=== PATIENT | female | born 1990 | race Caucasian/White ===

== ENCOUNTER 2023-07-03 09:13 | Emergency (ER) | payer OTHER, SELFPAY ==
[2023-07-03 09:16] VITALS: BP 145/95
--- NOTE | 2023-07-03 09:27 | ED.GENMED ---
History of Present Illness
General
Chief Complaint: Abdominal Pain
Source: patient
Exam Limitations: none
Time Seen by Provider: 07/03/23 09:23
Nursing documentation reviewed up to this point in time: agreed with
Travel History
Have you had any contact with someone who has COVID-19?: No
Do you have any symptoms of coronavirus? Fever > 100 degrees, chills, cough, shortness of breath, sore throat, loss of taste or smell, muscle aches, or headache?: No
History of Present Illness
History of Present Illness:
33-year-old female presents stating for the past 2 days she has had 3-4 episodes of explosive diarrhea, general abdominal pain for past 3 weeks. Seen at 06/26 w neg U/A, neg Covid, neg Flu.
States her abdominal pain has been there for approximately 3 weeks, generalized but in the past 2 nights it has migrated over to the left and up under her left ribs, both flank areas, up into her left shoulder and into her left ear. States it feels
like 'a big gas bubble.' Pain is worse with deep breaths laying down on back or left side. Improves sitting up and leaning forward.
States has had low grade fevers.
Took Valium 10 mg and pain went from 10/10 to now 4/10
Medications include:
Valium 10 mg 3 times daily as needed
Adderall 20 mg 3 times daily which she takes as needed
Spironolactone 100 mg daily which she has not taken for 2 days due to feeling ill
Trileptal
control pills
Past History
Past History
ED Past Medical History: Psychiatric (PTSD, anxiety/depression)
ED Past Surgical History: Appendectomy and
Social History
Tobacco: Non-smoker
Alcohol: Occasional
Personal: Single
Living: with family
Review of Systems
Review of Systems
Allergies reviewed?: Yes
All Other Systems: ROS reviewed and negative except as documented in HPI and ROS
Constitutional: Reports fever (low grade)
Respiratory: Denies trouble breathing
Cardiac: Reports chest pain; Denies diaphoresis or palpitations
ABD/GI: Reports abdominal pain and diarrhea; Denies nausea, vomiting, bloody stools or black stools
: Reports flank pain (bilateral); Denies dysuria, frequency, difficulty voiding or urgency
Musculoskeletal: Reports no symptoms
Skin: Reports no symptoms
Neurological: Reports no symptoms
Phy Exam
Physical Exam
Physical Exam:
GENERAL: No acute distress. A&Ox3.
CONSTITUTIONAL: Afebrile.
EYES: Clear, conjunctivae normal
Neck: Supple
ENMT: moist mucus membranes, Pharynx nl, TMs normal
RESPIRATORY: Regular respirations, nonlabored, lungs clear.
CARDIOVASCULAR: Regular rate and rhythm, no murmurs, no rubs.
GI: Soft, mildly tender LUQ, normal BS. Flanks nontender to percussion.
MUSCULOSKELETAL: No spinal bony tenderness, full ROM of neck. Moves with ease. Well perfused. No edema
SKIN: Warm, dry, pink
PSYCH: Normal mood and affect. Well kept, interactive and appropriate
NEUROLOGIC: Awake, alert and oriented. No focal neurological deficits
Course
Orders/Labs/Results
Orders:
Orders
07/03/23 09:15
Electrocardiogram (*1) Urgent
Reason for Study: Chest Pain
EKG- Treatment ONCE
07/03/23 09:40
Test Result ONCE
07/03/23 09:41
CMP [Comprehensive Metabolic Panel] Urgent
Complete Blood Count/With Diff Urgent
D-Dimer Urgent
HCG, Serum Qualitative Screen Urgent
Lipase Urgent
Troponin I Urgent
07/03/23 09:48
0.9% Sodium Chloride 1000 ml [Nss] 1,000 ml IV BOLUS
07/03/23 10:53
CT Abd/Pel (IV only)-DH only Urgent
Comment:
Reason For Exam: bilateral flank pain,
07/03/23 11:10
Ketorolac [Toradol] 15 mg IV NOW STA
07/03/23 11:16
Urinalysis Reflex To Culture Urgent
Date Specimen was Collected: 07/03/23
Time Specimen was Collected: 10:59
07/03/23 12:34
CR Chest - 2 Views Urgent
Comment:
Reason For Exam: chest pain mainly left side chest, shoulder
07/03/23 13:38
Mag Hydrox/Al Hydrox/Simeth [Maalox] 30 ml PO NOW STA
Viscous Lidocaine 2% [Xylocaine Viscous Cup] 15 ml PO NOW STA
Abnormal Lab Results
07/03/23
09:41
Absolute Lymphs (auto) 1.1 L 10^3/uL
(1.2-3.4)
Neutrophils % 75.9 H %
(42.2-75.2)
Lymphocytes % 13.0 L %
(20.5-51.1)
Glucose 107 H mg/dl
(70-99)
07/03/23 09:41
07/03/23 09:41
Vital Signs
Initial and Last Documented VS:
Initial Vital Signs
Temp Pulse Resp BP Pulse Ox
98.1 F 102 18 145/95 100
07/03/23 09:16 07/03/23 09:16 07/03/23 09:16 07/03/23 09:16 07/03/23 09:16
Last Documented Vital Signs
Temp Pulse Resp BP Pulse Ox
98.1 F 82 16 122/74 97
07/03/23 09:16 07/03/23 14:46 07/03/23 14:46 07/03/23 14:46 07/03/23 14:46
Sheriff Deputy consulted with Physician
Sheriff Deputy consulted with physician?: Yes
Name of Physician Consulted: Damion
MDM/Problems Addressed
Differential Diagnosis Includes:
kidney stone, diverticulitis, ovarian cyst.
Costochondritis, GERD, Pneumothorax, PE, pericardial effusion, pericarditis
MDM/Problems Addressed:
33-year-old female presents stating for the past 2 days she has had 3-4 episodes of explosive diarrhea, general abdominal pain for past 3 weeks. Seen at [facility]26 w neg U/A, neg Covid, neg Flu.
States her abdominal pain has been there for approximately 3 weeks, generalized but in the past 2 nights it has migrated over to the left and up under her left ribs, both flank areas, up into her left shoulder and into her left ear. States it feels
like 'a big gas bubble.' Pain is worse with deep breaths laying down on back or left side. Improves sitting up and leaning forward.
States has had low grade fevers.
Took Valium 10 mg and pain went from 10/10 to now 4/10
EKG NSR
11:02 AM
CBC normal
CMP normal
hCG negative
Troponin normal
12:[address] scan abdomen pelvis, radiology report read:
IMPRESSION:
1. There is a 2.8 cm cyst in the right adnexa, likely ovarian. Pt informed
2. Left kidney is atrophic but does perfuse. This is likely chronic. pt informed. She was not aware
No sign of pericarditis, percardial effusion
.
Nothing to explain symptoms, no worrisome findings
She is stable for DC. States some pain relief after GI cocktail
Plan: PPI, , f/u with PCP/GI as scheduled.
Patient ambulated out with normal gait upon discharge
*Critical Care Note
Total Time (30-74mins, 75-104mins- exclusive of procedures): Not Applicable
ED Attending Note
-
Portions of this chart may have been created with voice recognition software.� Occasional wrong word or��sound alike� substitutions may have occurred due to the inherent limitations of voice recognition software.
Discharge Plan
Departure
Patient Disposition: Home (Routine Discharge)
Date of Disposition: 07/03/23
Time of Disposition: 13:44
Patient with high blood pressure during this ER visit?: No
Condition: Fair
Discharge Problem:
Abdominal pain, Back pain
Instructions: Back Pain, Abdominal Pain
Prescriptions:
New
pantoprazole [Protonix] 40 mg tablet,delayed release (DR/EC)
40 mg PO DAILY Qty: 30 0RF
No Action
dextroamphetamine-amphetamine [Adderall] 20 MG tablet
20 mg PO TID
diazepam [Valium] 10 MG tablet
10 mg PO TID
Lisinopril
1 tab PO PRN PRN (Reason: hypertension)
Patient Comments:
pt does not know mg and does not take it often
Referrals:
Your, GI doctor at [facility] [Other] - Keep scheduled appt
Tenthoff,Suzie Rhodes MD [Family Provider] -
Activity Restrictions/Additional Instructions:
As we discussed, nothing in your workup here today to explain your symptoms. Nothing worrisome in your workup today.
Keep your GI appointment, continue your current medications as ordered
I sent a prescription to your pharmacy for pantoprazole
Interventions
Interventions:
*Risk Screen - Suicide Last Done: 07/03/23 09:21
*General Assessment Last Done: 07/03/23 09:21
*Neglect/Abuse Screening Last Done: 07/03/23 09:21
ED- Fall Risk Assessment Last Done: 07/03/23 09:45
*ED COVID-19 Vaccine History Last Done: 07/03/23 09:36
*Nursing Disposition Last Done: 07/03/23 14:46
NM-Dxvrzn-Fxatpscsrc Assessment Last Done: 07/03/23 09:45
Discharge Date and Time
Discharge Date/Time: 07/03/23 14:25
Print Language: NORWEGIAN
[2023-07-03 09:36] VITALS: BMI 31.4
[2023-07-03 09:38] VITALS: BP 121/97
[2023-07-03] MEDS: NSS 1000 IV (09:50)
[2023-07-03 10:00] VITALS: BP 119/72
[2023-07-03 10:04] LABS: % Basophils 0.5 % (0-2); % Eosinophils 2.8 % (0-6); % Immature Granulocytes 0.2 % (0-0.5); % Monocytes 7.6 % (1.7-9.3); % Neutrophils 75.9 % (42.2-75.2); Absolute Eosinophils 0.2 10^3/uL (0-0.7); Absolute Lymphocytes 1.1 10^3/uL (1.2-3.4); Absolute Monocytes 0.6 10^3/uL (0.1-0.6); Absolute Neutrophils 6.4 10^3/uL (1.4-6.5); Hemoglobin 14.9 g/dL (12.0-16.0); Mean Corp Hgb Conc. 34.7 g/dL (33.0-37.0); Mean Corpuscular Volume 89.6 fL (81.0-99.0); Mean Platelet Volume 9.2 fL (7.4-10.4); Nucleated Red Blood Cells % 0 %; Platelet Count 199 10^3/uL (130-400); Red Cell Dist. Width 13.1 % (11.5-14.5); White Blood Cell Count 8.4 10^3/uL (4.8-10.8)
[2023-07-03 10:12] LABS: HCG, Serum Qualitative Screen Negative
[2023-07-03 10:19] LABS: ALT (SGPT) 18 U/L (0-35); AST (SGOT) 21 U/L (14-36); Albumin 4.5 g/dl (3.5-5.0); Alkaline Phosphatase 65 U/L (38-126); Blood Urea Nitrogen 12 mg/dl (7-17); Calcium 9.5 mg/dl (8.4-10.2); Carbon Dioxide 24 mmol/L (22-30); Chloride 105 mmol/L (98-107); Estimated Creatinine Clearance 112 ml/min; Glucose 107 mg/dl (70-99); Lipase 39 U/L (23-300); Potassium 4.3 mmol/L (3.5-5.1); Sodium 136 mmol/L (135-145); Total Bilirubin 0.6 mg/dl (0.2-1.3); Total Protein 7.5 g/dl (6.3-8.2); eGFR > 60.00
[2023-07-03 10:25] LABS: Troponin I < 0.012 ng/ml
[2023-07-03 10:46] LABS: D-Dimer 0.44 ug/mlFEU (0.00-0.50)
[2023-07-03] MEDS: TORADOL 15 MG IV (11:13)
[2023-07-03 11:19] VITALS: BP 118/74
[2023-07-03 11:36] LABS: Urine Albumin Negative (Neg - Trace); Urine Bilirubin Negative (Negative); Urine Character Clear (Clear); Urine Color Yellow; Urine Glucose Negative (Negative); Urine Ketone Negative (Negative); Urine Leukocyte Negative (Negative); Urine Nitrite Negative (Negative); Urine Occult Blood Negative (Negative); Urine Urobilinogen Negative (Neg - 1+)
[2023-07-03 13:25] VITALS: BP 120/72
[2023-07-03] MEDS: XYLOCAINE VISCOUS CUP 15 ML PO (14:12)
[2023-07-03] MEDS: MAALOX 30 ML PO (14:12)
--- NOTE | 2023-07-03 14:20 | EDRN ---
Reviewed discharge instructions with patient. Verbalized understanding. Ambulated with steady gait to the lobby.
[2023-07-03 14:46] VITALS: BP 122/74
== END 2023-07-03 14:25 | disposition home or self-care (01) ==
LOC: EMR 09:13
PROVIDERS: Registered Nurse; EMERGENCY PHYSICIAN Student in an Organized Health Care Education/Training Program; FAMILY PHYSICIAN Family Medicine
DX: R10.84 Generalized abdominal pain (principal); M54.9 Dorsalgia, unspecified; R19.7 Diarrhea, unspecified; R50.9 Fever, unspecified; R07.9 Chest pain, unspecified; F43.10 Post-traumatic stress disorder, unspecified; F41.9 Anxiety disorder, unspecified; F32.A Depression, unspecified; N26.1 Atrophy of kidney (terminal); N83.201 Unspecified ovarian cyst, right side
CPT/HCPCS: 99285; 96361; 96374; 71046; 74177; 80053; 81003; 83690; 84484; 84703; 85025; 85379; 93005; Q9967

== ENCOUNTER 2023-07-28 14:08 | Emergency (ER) | payer OTHER, SELFPAY ==
[2023-07-28] VITALS (9 sets, daily range): BP systolic 107–179; BP diastolic 66–109
[2023-07-28 15:18] LABS: % Basophils 0.4 % (0-2); % Eosinophils 0.4 % (0-6); % Immature Granulocytes 0.3 % (0-0.5); % Lymphocytes 15.5 % (20.5-51.1); % Neutrophils 79.4 % (42.2-75.2); Absolute Lymphocytes 1.1 10^3/uL (1.2-3.4); Absolute Monocytes 0.3 10^3/uL (0.1-0.6); Absolute Neutrophils 5.7 10^3/uL (1.4-6.5); Hemoglobin 14.4 g/dL (12.0-16.0); Mean Corpuscular Hgb 30.6 pg (27.0-31.0); Mean Corpuscular Volume 84.9 fL (81.0-99.0); Mean Platelet Volume 9.3 fL (7.4-10.4); Nucleated Red Blood Cells % 0 %; Platelet Count 237 10^3/uL (130-400); Red Blood Cell Count 4.71 10^6/uL (4.20-5.40); Red Cell Dist. Width 12.6 % (11.5-14.5); White Blood Cell Count 7.2 10^3/uL (4.8-10.8)
[2023-07-28 15:21] LABS: INR 1.09; PT 13.9 Sec (11.4-14.6)
[2023-07-28 15:22] LABS: APTT 27.3 Sec (23.4-35.0)
[2023-07-28 15:44] LABS: HCG, Serum Qualitative Screen Negative
[2023-07-28 15:49] LABS: ALT (SGPT) 17 U/L (0-35); AST (SGOT) 26 U/L (14-36); Albumin 4.7 g/dl (3.5-5.0); Alkaline Phosphatase 48 U/L (38-126); Blood Urea Nitrogen 14 mg/dl (7-17); Calcium 10.1 mg/dl (8.4-10.2); Carbon Dioxide 24 mmol/L (22-30); Chloride 102 mmol/L (98-107); Glucose 106 mg/dl (70-99); Potassium 3.8 mmol/L (3.5-5.1); Sodium 137 mmol/L (135-145); Total Bilirubin 0.9 mg/dl (0.2-1.3); Total Protein 7.9 g/dl (6.3-8.2); eGFR > 60.00
[2023-07-28 15:55] LABS: NT-proBNP 87.5 pg/ml; Troponin I < 0.012 ng/ml
[2023-07-28 18:17] LABS: Monotest Negative (Negative)
--- NOTE | 2023-07-28 21:14 | ED.GENMED ---
History of Present Illness
General
Chief Complaint: Breathing Problem
Source: patient
Exam Limitations: none
Time Seen by Provider: 07/28/23 14:34
Nursing documentation reviewed up to this point in time: agreed with
Travel History
Have you had any contact with someone who has COVID-19?: No
Do you have any symptoms of coronavirus? Fever > 100 degrees, chills, cough, shortness of breath, sore throat, loss of taste or smell, muscle aches, or headache?: No
History of Present Illness
History of Present Illness:
33-year-old female with a past medical history of hypertension, hyperlipidemia, Graves' disease, Osei's thyroiditis who presents to the emergency department for evaluation of multiple complaints. Patient was recently seen at urgent care few
weeks ago for chest pain and was diagnosed with pneumonia on chest x-ray. She was started on doxycycline which she finished about 2 weeks ago. She was told to return for follow-up x-ray. She says that today she had an appoint with her
flotation operator to follow-up on incidental finding of splenomegaly and other nonspecific symptoms; she afterwards went to urgent care to have her follow-up chest x-ray and while she was there she disclosed that she was still having chest/flank pain.
They insisted that she come to the emergency room for assessment. She does admit that she has been having intermittent chest pain in the right lower chest radiates towards the right flank. She will occasionally have pains on the left side as well.
No clear consistent trigger/relieving factors noted. She feels she may have some shortness of breath as well. No vomiting. No fevers or chills although she says she will occasionally have intermittent sweats. She complains of generalized
malaise and myalgias. She does report that she has strong history of autoimmune disease including Graves disease.
Past History
Past History
ED Past Medical History: Psychiatric (PTSD, anxiety/depression)
ED Past Surgical History: Appendectomy and
Social History
Tobacco: Non-smoker
Alcohol: Occasional
Personal: Single
Living: with family
Review of Systems
Review of Systems
All Other Systems: ROS reviewed and negative except as documented in HPI and ROS
Constitutional: Reports fatigue and chills; Denies fever
EENT: Denies sore throat or runny nose
Respiratory: Reports trouble breathing; Denies cough
Cardiac: Reports chest pain; Denies diaphoresis or palpitations
ABD/GI: Reports abdominal pain; Denies nausea or vomiting
: Denies flank pain
Musculoskeletal: Reports muscle pain and back pain; Denies neck pain
Neurological: Denies headache
Phy Exam
Physical Exam
Physical Exam:
General: Awake, alert, oriented x3; no acute distress
Head: Normocephalic, atraumatic
Eyes: Conjunctiva normal, sclera anicteric
Throat: Airway intact, handling secretions
Neck: Trachea midline, supple without meningismus
Lungs: Clear to auscultation bilaterally, no wheezing, rales, rhonchi
Heart: Regular rate and rhythm, no murmurs, gallops, or rubs�triage tachycardia resolved
Abd: Soft, non distended, nontender
Neuro: No gross deficits
Extremities: No edema in extremities, warm well-perfused
Scores
Heart Failure Risk
Heart Failure Risk Score: Not Applicable
Heart Score for Chest Pain Patients
STEMI patient?: Not applicable
Withdrawal Assessment of Alcohol
Withdrawal Assessment Completed?: Not applicable
Course
Orders/Labs/Results
Orders:
Orders
07/28/23 14:41
CT Pe/abd/pel W Urgent
Reason For Exam: sob, chest pain, right mid back pain
Test Result ONCE
07/28/23 14:42
Electrocardiogram (*1) Urgent
Reason for Study: Chest Pain
EKG- Treatment ONCE
07/28/23 15:05
Complete Blood Count/With Diff Urgent
PTT Urgent
Prothrombin Time Urgent
07/28/23 15:25
Comprehensive Metabolic Panel Urgent
HCG, Serum Qualitative Screen Urgent
Monotest Urgent
Comment: ADD ON
NT-proBNP Urgent
Troponin I Urgent
07/28/23 17:50
Add On- LAB Urgent
Tests Added?: monospot
Abnormal Lab Results
07/28/23 07/28/23
15:05 15:25
Absolute Lymphs (auto) 1.1 L 10^3/uL
(1.2-3.4)
Neutrophils % 79.4 H %
(42.2-75.2)
Lymphocytes % 15.5 L %
(20.5-51.1)
Glucose 106 H mg/dl
(70-99)
07/28/23 15:05
07/28/23 15:25
Vital Signs
Initial and Last Documented VS:
Initial Vital Signs
Temp Pulse Resp BP Pulse Ox
36.9 C 111 18 179/109 100
07/28/23 14:16 07/28/23 14:16 07/28/23 14:16 07/28/23 14:16 07/28/23 14:16
Last Documented Vital Signs
Temp Pulse Resp BP Pulse Ox
36.9 C 79 12 108/83 99
07/28/23 14:16 07/28/23 19:24 07/28/23 19:24 07/28/23 19:24 07/28/23 19:24
MDM/Problems Addressed
Differential Diagnosis Includes:
Differential for persistent chest/flank pain includes but not limited to: Pneumonia, pneumothorax, pleurisy, PE, dissection, myocarditis, pericarditis, ACS, nephrolithiasis, hepatitis, pancreatitis, gastritis
MDM/Problems Addressed:
33-year-old female presents for multiple complaints�she was primary sent from urgent care to be assessed for continued chest/flank pains in the setting of recent treatment for pneumonia. She was hypertensive and tachycardic in triage normalized by
my assessment. Exam as above. Plan to place an IV check labs including CBC and CMP, troponin, BNP. Check an hCG. Check CTA of the chest to rule out PE and will extend to the abdomen pelvis to evaluate for nephrolithiasis or persistent
hepatosplenomegaly. Check monotest given reported splenomegaly. Will monitor closely reassess after the above.
Labs reviewed: CBC unremarkable, CMP no clinically significant abnormalities. Troponin undetectable. BNP not elevated. hCG negative. Monospot negative. CT PE negative for PE, pneumothorax or other acute pathology in the chest. CT of the
abdomen pelvis shows hepatosplenomegaly. No other acute intra-abdominal pathology. She did have incidental axillary lymphadenopathy as well. I had a long discussion with the patient�this point no clear emergent pathology no clear indication for
admission. She will need outpatient follow-up regarding lymphadenopathy and persistent hepatosplenomegaly, possibly autoimmune disease or cancer. Could also have residual lymphadenopathy from recent pneumonia. Advised to have repeat ultrasound of
axillary region in 2 weeks to follow-up with her primary doctor as well as with rheumatology for further evaluation of her symptoms. She feels very comfortable this plan. She did report significant improvement in her symptoms when she was on a
steroid Dosepak recently for her respiratory symptoms�provided an additional Medrol Dosepak for short-term improvement. All questions answered.
*Radiology
Radiology exam reviewed: radiology read reviewed
*Pulse Oximetry
Patient hypoxic: no
*EKG
Interpreted by ED Provider?: Yes
Heart Rate: 91
Rate: normal
Rhythm: sinus
[place]: normal axis
Interval: normal interval
QRS Pattern: normal QRS
Ischemia: no ischemia
*Critical Care Note
Total Time (30-74mins, 75-104mins- exclusive of procedures): Not Applicable
Data Reviewed
Review of Other/Old Records Reveals: Labs and Records
Source: patient and records (Reviewed external records from urgent care)
ED Attending Note
-
Portions of this chart may have been created with voice recognition software.� Occasional wrong word or��sound alike� substitutions may have occurred due to the inherent limitations of voice recognition software.
Discharge Plan
Departure
Patient Disposition: Home (Routine Discharge)
Date of Disposition: 07/28/23
Time of Disposition: 19:08
Patient with high blood pressure during this ER visit?: Yes
Discharge Problem:
Lymphadenopathy, Hepatosplenomegaly, Right flank pain, Hypertension
Instructions: Flank Pain ED
Prescriptions:
New
methylprednisolone [Medrol ([place])] 4 mg tablets,dose pack
See Rx Instructions .ROUTE .COMPLEX Qty: 21 0RF
Rx Instructions:
orally per package directions
No Action
dextroamphetamine-amphetamine [Adderall] 20 MG tablet
20 mg PO TID
diazepam [Valium] 10 MG tablet
10 mg PO TID
Lisinopril
1 tab PO PRN PRN (Reason: hypertension)
Patient Comments:
pt does not know mg and does not take it often
pantoprazole [Protonix] 40 mg tablet,delayed release (DR/EC)
40 mg PO DAILY Qty: 30 0RF
Referrals:
Suzie Ley MD [Family Provider] - Follow up in 5-7 days
Activity Restrictions/Additional Instructions:
In the emergency room you had blood work and a CT scan�your CT scan showed enlarged lymph nodes in your axilla and also enlargement of your liver and spleen. You should follow-up with your primary doctor to schedule a repeat ultrasound to follow
along with these lymph nodes if they remain enlarged they will require further workup. You should continue to follow-up with the flotation operator as we discussed.
Thank you for visiting the Emergency Department at [facility].
1. Please schedule a follow up appointment as directed. Call first thing tomorrow morning to make an appointment.
2. If indicated, please take your medications as instructed and indicated on discharge paperwork.
3. If any of your symptoms do not improve, or persist, or become more severe within 6-12 hours, please return to the emergency department for further care.
4. Please return to the emergency department if you develop a headache, neck pain/stiffness, fever greater than 100.4F, chest pain, shortness of breath, persistent nausea, vomiting, slurred speech, difficulty walking, numbness/tingling, weakness,
signs of infection or any other symptoms that are worrisome to you.
Please call [phone] if you have any questions.
Interventions
Interventions:
*Risk Screen - Suicide Last Done: 07/28/23 14:16
*General Assessment Last Done: 07/28/23 15:13
*Neglect/Abuse Screening Last Done: 07/28/23 14:16
ED- Fall Risk Assessment Last Done: 07/28/23 19:35
*ED COVID-19 Vaccine History Last Done: 07/28/23 14:16
*Nursing Disposition Last Done: 07/28/23 19:35
ED- Cardiac Assessment Last Done: 07/28/23 15:12
ED- Pulmonary Assessment Last Done: 07/28/23 15:12
Discharge Date and Time
Discharge Date/Time: 07/28/23 19:35
Print Language: LITHUANIAN
== END 2023-07-28 19:35 | disposition home or self-care (01) ==
LOC: EMR 14:08
PROVIDERS: EMERGENCY PHYSICIAN Emergency Medicine; FAMILY PHYSICIAN Family Medicine
DX: R10.9 Unspecified abdominal pain (principal); R16.2 Hepatomegaly with splenomegaly, not elsewhere classified; R59.1 Generalized enlarged lymph nodes; I10 Essential (primary) hypertension; R00.0 Tachycardia, unspecified
CPT/HCPCS: 99285; 71275; 74177; 80053; 83880; 84484; 84703; 85025; 85610; 85730; 86308; 93005; Q9967